=== PATIENT | female | born 1940 | race Caucasian/White ===

== ENCOUNTER 2017-02-16 22:11 | Inpatient (IN) | payer MEDICARE, OTHER ==
[~2017-02-16] VITALS: Ht 162.6 cm; Wt 68.9 kg
[2017-02-16] MEDS ORDERED: ROSU5TAB PO (22:44)
[2017-02-16] MEDS ORDERED: ENAL5TAB PO (22:44)
[2017-02-16 23:10] LABS: CARBON DIOXIDE 24 mmol/L (21-32); CHLORIDE 107 mmol/L (98-107); CREATININE 1.4 mg/dL (0.6-1.3); GLUCOSE 115 mg/dL (74-106); POTASSIUM 3.7 mmol/L (3.5-5.1); UREA NITROGEN, BLOOD 32 mg/dL (7-18)
[2017-02-16 23:16] LABS: ETHANOL < 3 MG/DL (0-0)
[2017-02-16 23:17] LABS: ACETAMINOPHEN < 2.0 ug/mL (10-30); ALANINE AMINOTRANSFERASE 32 U/L (14-59); ALKALINE PHOSPHATASE 93 U/L (50-136); ASPARTATE AMINOTRANSFERASE 56 U/L (15-37); BILIRUBIN,DIRECT 0.1 mg/dL (0.0-0.2); BILIRUBIN,TOTAL 0.5 mg/dL (0.2-1.0); TOTAL PROTEIN, SERUM 6.6 g/dL (6.4-8.2)
[2017-02-16 23:29] LABS: BASOPHILS # (AUTO) 0.1 K/uL (0.0-8.0); BASOPHILS % (AUTO) 0.5 % (0.0-2.0); EOSINOPHILS # (AUTO) 0.1 K/uL (0.0-0.7); EOSINOPHILS % (AUTO) 0.5 % (0.0-7.0); HEMATOCRIT 31.8 % (37-47); LYMPHOCYTES % (AUTO) 19.1 % (20.5-51.5); MEAN CORPUSCULAR HEMOGLOBIN 30.6 UUG (27.0-31.0); MEAN CORPUSCULAR HGB CONC 35 g/dL (32.0-37.0); MEAN CORPUSCULAR VOLUME 88.4 FL (81.0-99.0); MONOCYTES % (AUTO) 9.5 % (0.0-11.0); NEUTROPHILS # (AUTO) 7.3 K/UL (1.8-8.9); NEUTROPHILS % (AUTO) 70.4 % (38.5-71.5); PLATELET COUNT (AUTO) 282 K/UL (150-450); RED BLOOD CELL COUNT(AUTO) 3.59 MIL/UL (4.2-5.4); WHITE BLOOD COUNT (AUTO) 10.5 K/UL (4.0-11.2)
--- NOTE | 2017-02-16 23:33 | NUR ---
Call placed to [facility] for PET evaluation, ETA 60 min.
[2017-02-16 23:34] LABS: *BILIRUBIN,URIN NEGATIVE (NEGATIVE); *BLOOD, URINE Trace-lysed (NEGATIVE); *CLARITY,URINE CLEAR (CLEAR); *COLOR,URINE YELLOW (YELLOW); *KETONES,URINE NEGATIVE (NEGATIVE); *PROTEIN,URINE TRACE (NEGATIVE); *UROBILINOGEN,URINE 0.2 E.U./dl (NORMAL); LEUKOCYTE ESTERASE ,URINE TRACE (NEGATIVE); NITRITE, URINE NEGATIVE (NEGATIVE); PH,URINE 5.5 (5.0-8.0); UGLUCOSE NEGATIVE (NEGATIVE)
[2017-02-16 23:40] LABS: *AMPHETAMINE, URINE NEGATIVE (NEGATIVE); *BARBITURATE, URINE NEGATIVE (NEGATIVE); *CANNABINOID, URINE NEGATIVE (NEGATIVE); *COCCAINE, URINE NEGATIVE (NEGATIVE); *OPIATE, URINE NEGATIVE (NEGATIVE); *PHENCYCLIDINE SCREEN,URINE NEGATIVE (NEGATIVE)
[2017-02-16 23:55] LABS: BACTERIA,URINE FEW /HPF (NONE SEEN); SQUAMOUS EPITHELIAL CELL,UR FEW /HPF (NONE SEEN)
--- NOTE | 2017-02-17 01:26 | NUR ---
[facility] placed patient on 5150 hold for GD.
[2017-02-17] MEDS ORDERED: LORAZEPAM 0.5 MG TABLET PO ONE (01:30)
[2017-02-17] MEDS ORDERED: LORAZEPAM 1 MG TABLET ONE (01:39)
[2017-02-17 02:00] VITALS: BP 116/83
--- NOTE | 2017-02-17 02:15 | NUR ---
Pt. admitted to [facility], under care of Dr. Mon Belongs List completed
[2017-02-17] MEDS ORDERED: TEMAZEPAM 7.5 MG CAPSULE PO PRN (02:45)
[2017-02-17] MEDS ORDERED: MAG HYDROX/AL HYDROX/SIMETH 30 ML LIQUID UDC PO PRN (02:45)
[2017-02-17] MEDS ORDERED: ACETAMINOPHEN 325 MG TABLET PO PRN (02:45)
[2017-02-17] MEDS ORDERED: MAGNESIUM HYDROXIDE 30 ML LIQUID UDC PO PRN (02:45)
--- NOTE | 2017-02-17 06:49 | NUR ---
76 YRS OLD FEMALE WHO LIVES ALONE @ HOME.BIB HER DAUGHTER TO [facility] .PT WAS PLACED ON 72 HR HOLD FOR GD FOR MANIC,AGITATED,SCREAMING,NOT EATING,NOT SLEEPING,UNABLE TO PROVIDE FOR FOOD,CARE HOME OR CLOTHING DUE TO A MENTAL DISORDER.AFTER MEDICALLY CLEARED FROM ER PT WAS ADMITTED TO [facility].ARRIVED BY JESSICA ACCOMPANIED BY ER STAFF AND HER FAMILY.A/O X3.PALE,WEAK AND UNSTEADY ON HER FEET.SL.POOR CONCENTRATION.COOPERATIVE WITH THE INTERVIEW.TOOK A LONG TIME FOR HER TO READ BEFORE SIGNING ALL ADMIT PAPERS.HAVING EPISODE OF CRYING -C/O HER KIDS THAT NOBODY TO BE WITH HER DURING THE HOLIDAYS.SHE HAS HX.OF CANCER OF SCALP/RIGHT BREAST/BONE AND LIVER.STILL ON CHEMO THERAPY.SHE HAS A GREGORY CATH ON MID UPPER CHEST.JUST HAD TX DONE FOR THE 1ST WEEK ON 02/15/17.DENIES PAIN,S/I,HI OR A/V H.ENC.TO EXPRESS HER FEELING.WILL CONTINUE TO MONITOR VERY CLOSELY
[2017-02-17 07:30] VITALS: BP 127/80
[2017-02-17] MEDS: CEPHALEXIN MONOHYDRATE 500 MG CAPSULE PO SCH ×3 (11:10→21:45)
--- NOTE | 2017-02-17 11:36 | NUR ---
Initial discharge instructions: The patient resides at [[address] [place] [address]; ] independently. The patient stated that she would like to return home upon discharge. The patient stated she will follow-up with her PCP, Dr. Moody Shelton . SW will contact pt's daughter Kathi Driver . SUN will speak with pt, family, and MD regarding most appropriate discharge plan. SS will form a safe and proper discharge.
--- NOTE | 2017-02-17 11:57 | NUR ---
rec d patient oriented and alert with noted depression, p[t scnheduled to transfer to 2nd floor med surg overflow in no acute distress. Report called to mike ellis at 11 35 am..patient leaving all belongings
[2017-02-17 12:00] VITALS: BP 128/62
--- NOTE | 2017-02-17 12:09 | NUR ---
pt received from [facility] to room 201b via wheel chair in stable condition.pt is axox4.orient the pt to room and surroundings.sitter at bed side.
--- NOTE | 2017-02-17 12:58 | NUR ---
first dose given at 11 10 ampt scheduled for transfer to med surg floor
[2017-02-17 16:00] VITALS: BP 121/52
--- NOTE | 2017-02-17 17:11 | NUR ---
pt is sitting in her room ,family is with her,no c/o combativeness noted.
[2017-02-17 20:00] VITALS: BP 137/83
--- NOTE | 2017-02-17 20:00 | NUR ---
RECEIVED PATIENT SITTING IN CHAIR AT BEDSIDE, TALKING ON THE PHONE. SITTER AT BEDSIDE. PATIENT DENIES PAIN OR DISCOMFORT. NO RESP. DISTRESS NOTED. VSS. CALL LIGHT IN REACH. ALL NEEDS ATTENDED. WILL CONTINUE TO MONITOR.
[2017-02-17] MEDS: ARIPIPRAZOLE 5 MG TABLET PO SCH (20:56)
[2017-02-17] MEDS: MIRTAZAPINE 15 MG TABLET PO SCH (20:56)
[2017-02-17] MEDS: ATORVASTATIN 10 MG TABLET PO SCH (20:56)
[2017-02-17] MEDS ORDERED: Medication Not On Formulary EA (Rosuvastatin Calcium (Crestor) 5 MG) PO SCH (21:00)
--- NOTE | 2017-02-17 21:00 | NUR ---
PATIENT VERY HESITANT REGARDING PSYCH MEDICATIONS. PATIENT SPOKE WITH DR. TYLER REGARDING ORDERED MEDS TO BE GIVEN. PATIENT EDUCATED ON MEDICATIONS. PATIENT VERBALIZED UNDERSTANDING BUT NEEDS FREQUENT REDIRECTION.
--- NOTE | 2017-02-17 23:00 | NUR ---
PATIENT AWAKE IN BED. VERY RESTLESS. PATIENT GIVEN RESTORIL 7.5MG PO PRN FOR SLEEP. PATIENT IS CRYING AND VERY EMOTIONAL. PROVIDED SUPPORT AND PATIENT MADE COMFORTABLE. SITTER AT BEDSIDE FOR SAFETY. ALL NEEDS ATTENDED. WILL CONTINUE TO MONITOR.
--- NOTE | 2017-02-18 00:23 | NUR ---
PATIENT AWAKE IN BED. VERY RESTLESS. UNABLE TO SLEEP. SITTER AT BEDSIDE FOR SAFETY. WILL CONTINUE TO MONITOR.
[2017-02-18 05:24] VITALS: BP 104/64
[2017-02-18] MEDS: CEPHALEXIN MONOHYDRATE 500 MG CAPSULE PO SCH ×3 (05:54→21:32)
--- NOTE | 2017-02-18 06:49 | NUR ---
PATIENT SLEPT 2 HOURS. SITTER AT BEDSIDE.
[2017-02-18 07:32] LABS: THYROID STIMULATING HORMONE 5.311 mIU/mL (0.358-3.740)
[2017-02-18 07:35] LABS: ALANINE AMINOTRANSFERASE 28 U/L (14-59); ALKALINE PHOSPHATASE 76 U/L (50-136); ASPARTATE AMINOTRANSFERASE 39 U/L (15-37); BILIRUBIN,TOTAL 0.4 mg/dL (0.2-1.0); CARBON DIOXIDE 28 mmol/L (21-32); CHLORIDE 111 mmol/L (98-107); CHOLESTEROL 137 mg/dL (<200); CREATININE 1.2 mg/dL (0.6-1.3); GLUCOSE 107 mg/dL (74-106); HDL CHOLESTEROL 57 mg/dL (40-60); MAGNESIUM 1.6 mg/dL (1.8-2.4); PHOSPHOROUS 3.8 mg/dL (2.5-4.9); POTASSIUM 3.7 mmol/L (3.5-5.1); TOTAL PROTEIN, SERUM 5.6 g/dL (6.4-8.2); TRIGLYCERIDES 51 MG/DL (30-150); UREA NITROGEN, BLOOD 22 mg/dL (7-18)
[2017-02-18 07:53] LABS: BASOPHILS % (AUTO) 0.4 % (0.0-2.0); EOSINOPHILS # (AUTO) 0.1 K/uL (0.0-0.7); EOSINOPHILS % (AUTO) 1.2 % (0.0-7.0); HEMATOCRIT 30.9 % (37-47); HEMOGLOBIN 10.6 G/DL (12.0-16.0); LYMPHOCYTES # (AUTO) 2.1 K/UL (0.8-4.8); LYMPHOCYTES % (AUTO) 27.6 % (20.5-51.5); MEAN CORPUSCULAR HEMOGLOBIN 30.1 UUG (27.0-31.0); MEAN CORPUSCULAR HGB CONC 34 g/dL (32.0-37.0); MEAN CORPUSCULAR VOLUME 88.1 FL (81.0-99.0); MONOCYTES # (AUTO) 0.6 K/UL (0.1-1.30); MONOCYTES % (AUTO) 8.2 % (0.0-11.0); NEUTROPHILS # (AUTO) 4.7 K/UL (1.8-8.9); NEUTROPHILS % (AUTO) 62.6 % (38.5-71.5); PLATELET COUNT (AUTO) 212 K/UL (150-450); RED BLOOD CELL COUNT(AUTO) 3.51 MIL/UL (4.2-5.4); WHITE BLOOD COUNT (AUTO) 7.5 K/UL (4.0-11.2)
--- NOTE | 2017-02-18 08:52 | NUR ---
Patient received inawake, pacing and anxious. Stated that the medications that she got are making her feel weird and needs to talk to her Doctor now. Will follow with MD. Now, patient is sleeping now. No s/s of distress noted. Will continue monitoring.
[2017-02-18 09:06] VITALS: BP 104/50
[2017-02-18] MEDS ORDERED: MAGNESIUM OXIDE 400 MG TABLET PO ONE (10:00)
[2017-02-18] MEDS: LORAZEPAM 1 MG TABLET PO PRN (15:26)
--- NOTE | 2017-02-18 17:41 | NUR ---
PATIENT IN BED EATING HER DINNER. NO S/S OF ACUTE DISTRESS NOTED DURING MY SHIFT. BECAME ANXIOUS AND AGITATED DURING THE AFTERNOON. ATIVAN WAS GIVEN TO RELAXED HER, IT WAS EFFECTIVE STATING THAT SHE WAS FINALLY ABLE TO RELAX AND SLEEP. 14 DAY HOLD WAS ORDERED BY . FAMILY MEMBER WORRY ABOUT HER CHEMO THAT IS DUE ON MONDAY. REPORT WILL BE ENDORSE TO NEXT SHIFT NURSE. FAMILY MEMBER AT THE BEDSIDE. SAFETY AND COMFORT DURING THE DAY. WILL CONTINUE MONITORING.
--- NOTE | 2017-02-18 18:31 | NUR ---
DAUGHTER'S PATIENT INFORMATION WAS GIVEN TO HARJIT, CHARGE NURSE AND IT WILL BE ENDORSE TO NEXT SHIFT NURSE TO FOLLOW UP WITH DR. STERLING ABOUT PATIENT 14 DAY HOLD AND CHEMOTHERAPY SCHEDULE ON Monday.
[2017-02-18 20:00] VITALS: BP 102/68
--- NOTE | 2017-02-18 20:00 | NUR ---
RECEIVED PATIENT AWAKE IN HALLWAY WITH FAMILY. PATIENT IS A/O X4. DENIES PAIN OR DISCOMFORT. SITTER AT BEDSIDE FOR SAFETY. VSS. ALL NEEDS ATTENDED. WILL CONTINUE TO MONITOR.
[2017-02-18] MEDS: MIRTAZAPINE 15 MG TABLET PO SCH (21:00)
[2017-02-18] MEDS: ATORVASTATIN 10 MG TABLET PO SCH (21:32)
[2017-02-18] MEDS: ARIPIPRAZOLE 5 MG TABLET PO SCH ×2 (21:32→22:00)
--- NOTE | 2017-02-18 22:30 | NUR ---
PATIENT DOES NOT WANT TO TAKE "PSYCH MEDS." PATIENT FEELS LIKE THE MEDS ARE MAKING HER FEEL VERY WEAK. FAMILY AND PATIENT ARE REQUESTING TO SPEAK WITH DR. STERLING IN AM REGARDING PSYCH MEDICATIONS. ALL NEEDS ATTENDED.
[2017-02-19] MEDS: CEPHALEXIN MONOHYDRATE 500 MG CAPSULE PO SCH ×3 (06:08→20:25)
--- NOTE | 2017-02-19 06:15 | NUR ---
PATIENT AWAKE IN BED. SLEPT A TOTAL OF 6 HOURS. SITTER AT BEDSIDE.
[2017-02-19 07:13] LABS: BASOPHILS % (AUTO) 0.4 % (0.0-2.0); EOSINOPHILS # (AUTO) 0.1 K/uL (0.0-0.7); EOSINOPHILS % (AUTO) 1.6 % (0.0-7.0); HEMATOCRIT 32.9 % (37-47); HEMOGLOBIN 11.2 G/DL (12.0-16.0); LYMPHOCYTES # (AUTO) 1.7 K/UL (0.8-4.8); LYMPHOCYTES % (AUTO) 24.5 % (20.5-51.5); MEAN CORPUSCULAR HEMOGLOBIN 30.5 UUG (27.0-31.0); MEAN CORPUSCULAR HGB CONC 34 g/dL (32.0-37.0); MEAN CORPUSCULAR VOLUME 89.7 FL (81.0-99.0); MONOCYTES # (AUTO) 0.4 K/UL (0.1-1.30); MONOCYTES % (AUTO) 5.8 % (0.0-11.0); NEUTROPHILS # (AUTO) 4.9 K/UL (1.8-8.9); NEUTROPHILS % (AUTO) 67.7 % (38.5-71.5); PLATELET COUNT (AUTO) 221 K/UL (150-450); RED BLOOD CELL COUNT(AUTO) 3.67 MIL/UL (4.2-5.4); WHITE BLOOD COUNT (AUTO) 7.1 K/UL (4.0-11.2)
[2017-02-19 07:18] LABS: CARBON DIOXIDE 27 mmol/L (21-32); CHLORIDE 110 mmol/L (98-107); CREATININE 1.1 mg/dL (0.6-1.3); GLUCOSE 84 mg/dL (74-106); MAGNESIUM 1.7 mg/dL (1.8-2.4); PHOSPHOROUS 3.4 mg/dL (2.5-4.9); POTASSIUM 4.1 mmol/L (3.5-5.1); UREA NITROGEN, BLOOD 17 mg/dL (7-18)
[2017-02-19 08:15] VITALS: BP 127/70
[2017-02-19] MEDS ORDERED: MAGNESIUM OXIDE 400 MG TABLET PO ONE ×2 (10:30→12:00)
[2017-02-19] MEDS: LORAZEPAM 1 MG TABLET PO PRN (13:52)
--- NOTE | 2017-02-19 13:53 | NUR ---
PT FELLS SHAKY NERVOUS RESTLESS PER PT REQUEST AND PER MD ORDERS ATIVAN 1 MG PO GIVEN
[2017-02-19 16:24] VITALS: BP 130/70
[2017-02-19 20:00] VITALS: BP 99/58
[2017-02-19] MEDS: ARIPIPRAZOLE 5 MG TABLET PO SCH (20:25)
[2017-02-19] MEDS: ATORVASTATIN 10 MG TABLET PO SCH (20:25)
[2017-02-19] MEDS ORDERED: MIRTAZAPINE 15 MG TABLET PO SCH (21:00)
--- NOTE | 2017-02-19 21:00 | NUR ---
Patient received sitting up in bed, no acute distress noted. Observed with depressed mood about hospitalization. Denies any suicidal/homicidal ideations. No aggressive or combative behavior noted. 1:1 sitter at all times.
[2017-02-20] MEDS: CEPHALEXIN MONOHYDRATE 500 MG CAPSULE PO SCH ×3 (06:00→14:00)
--- NOTE | 2017-02-20 07:00 | NUR ---
pt is laying in bed comfortably. no s/s of respiratory distress noted. no pain reported. all safety needs are met. will continue to monitor. 1:1 sitter for safety.
[2017-02-20] MEDS: LORAZEPAM 1 MG TABLET PO PRN (10:43)
--- NOTE | 2017-02-20 19:00 | NUR ---
completed educational package for the pt, print out the filled out discharge package. Pt is laying in bed, no s/s of respiratory distress noted. No pain reported. Pt's daughter is by the bedside. Dr. Mon's prescription is given to the pt's daughter. Advised VAISHALI Brooke that pt is getting discharged. Per Mendy "Please let Dr. Guerrero know about the prescription for UTI". Advised Rod Guerrero, "will have prescription ready". Gave the report to noc nurse to complete the discharge.
--- NOTE | 2017-02-20 19:15 | NUR ---
's Cesar prescription is provided to the pt, the copy is placed in the chart. Pt noted to be agitated. Pt noted wanting to leave w/o signing the discharge paperwork. Report is given to noc nurse to complete the d/c of the pt.
--- NOTE | 2017-02-20 19:30 | NUR ---
RECEIVED PT'S A/A/O X3-4 ,SITTING IN WHEELCHAIR;WITH HER DAUGHTER AT THIS TIME,PER PT AND HER DAUGHTER STATED THAT THEY REALLY WANTED TO GO HOME AND ALREADY HAD PRESCRIPTIONS FROM AND FROM AM NURSE,WENT OVER TO REVIEW D/C INSTRUCTION AT THIS TIME WITH THEM;THEY VERBALIZED UNDERSTANDING AND COOPERATIVE.PT WENT HOME BY PRIVATE CARE,ACCOMPANIED BY HER DAUGHTER AT THIS TIME.NO DISTRESS NOTED,STABLE CONDITION UPON D/C TIME.PT'S SENT TO HER CAR BY WHEELCHAIR BY HYDROMETEOROLOGICAL TECHNICIAN NOTED.
== END 2017-02-20 20:25 | disposition home or self-care (01) | DRG 885 ==
LOC: ER 22:16 → GPS 02-17 01:56 → GPSOV 02-17 11:55
PROVIDERS: ADMIT Psychiatry & Neurology Psychiatry; ATTEND Internal Medicine
DX: F32.3 Major depressive disorder, single episode, severe with psychotic features (principal); N17.0 Acute kidney failure with tubular necrosis; C79.51 Secondary malignant neoplasm of bone; C78.7 Secondary malignant neoplasm of liver and intrahepatic bile duct; N39.0 Urinary tract infection, site not specified; E44.0 Moderate protein-calorie malnutrition; Z85.3 Personal history of malignant neoplasm of breast; Z92.21 Personal history of antineoplastic chemotherapy; E78.5 Hyperlipidemia, unspecified; Z87.81 Personal history of (healed) traumatic fracture; Z68.26 Body mass index [BMI] 26.0-26.9, adult; G62.9 Polyneuropathy, unspecified; M89.8X9 Other specified disorders of bone, unspecified site; E02 Subclinical iodine-deficiency hypothyroidism; F03.90 Unspecified dementia, unspecified severity, without behavioral disturbance, psychotic disturbance, mood disturbance, and anxiety; R73.9 Hyperglycemia, unspecified; E83.42 Hypomagnesemia; D64.9 Anemia, unspecified; F41.9 Anxiety disorder, unspecified; I10 Essential (primary) hypertension; Z98.890 Other specified postprocedural states; Z79.899 Other long term (current) drug therapy
CPT/HCPCS: 36415; 71010; 80307; 83735; 84100; 84443; 84481; 85025; 93005; A4663; G0480; G0480-TC